=== PATIENT | male | born 1960 | race Two or more races ===

== ENCOUNTER 2017-01-14 09:51 | Day surgery (SDC) | payer MEDICARE ==
[~2017-01-14 09:51] MED LIST: CEFAZOLIN SODIUM 2 GRAM PREMIX 100 ML IV ONE; IV START KIT ONE; LACTATED RINGERS 1,000 ML ONE
[2017-01-14] MEDS ORDERED: LIDOCAINE 1% 2 ML VIAL ID PRN (10:07)
[2017-01-14] MEDS ORDERED: LACTATED RINGERS 1,000 ML IV SCH ×3 (10:07→15:03)
[2017-01-14] MEDS ORDERED: CEFAZOLIN SODIUM 2 GRAM PREMIX 2 G in Premix (D5W) 100 ml 1 EACH IV PRN (10:07)
[2017-01-14] MEDS ORDERED: SODIUM CHLORIDE 0.9% 1,000 ML ONE (10:29)
[2017-01-14] MEDS ORDERED: ONDANSETRON 4 MG/2ML 2 ML VIAL ONE (11:07)
[2017-01-14] MEDS ORDERED: FENTANYL 100 MCG/2 ML VIAL ONE ×2 (11:07→14:37)
[2017-01-14] MEDS ORDERED: SUCCINYLCHOLINE CHL 20 MG/ML DOSE ONE (11:07)
[2017-01-14] MEDS ORDERED: PROPOFOL 20 ML IV ONE (11:07)
[2017-01-14] MEDS ORDERED: DEXAMETHASONE SOD PHOS 4 MG/1 ML VIAL ONE (11:07)
[2017-01-14] MEDS ORDERED: MIDAZOLAM HCL 1 MG/ML 2ML VIAL ONE (11:07)
[2017-01-14] MEDS ORDERED: LIDOCAINE 1% (PRES FREE) 30 ML VIAL ONE (12:07)
[2017-01-14] MEDS ORDERED: PHENYLEPHRINE 10 MG/1 ML (1%) VIAL ONE (12:44)
[2017-01-14] MEDS ORDERED: SODIUM CHLORIDE 0.9% FLUSH 10 ML ONE (12:44)
[2017-01-14] MEDS ORDERED: PROMETHAZINE HCL 25 MG/ML VIAL IM PRN (13:00)
[2017-01-14] MEDS ORDERED: HYDROMORPHONE HCL 1 MG/ML SYRINGE IV PRN ×2 (13:00→15:03)
[2017-01-14] MEDS ORDERED: LABETALOL HCL 5 MG/ML 20ML VIAL IV PRN (13:00)
[2017-01-14] MEDS ORDERED: ATROPINE SULFATE 0.4 MG/1 ML VIAL IV PRN (13:00)
[2017-01-14] MEDS ORDERED: ONDANSETRON 4 MG/2ML 2 ML VIAL IV PRN ×2 (13:00→15:03)
[2017-01-14] MEDS ORDERED: MEPERIDINE 25 MG/ML SYRINGE IV PRN (13:00)
[2017-01-14] MEDS ORDERED: NALOXONE HCL 0.4 MG/ML VIAL IV PRN (13:00)
[2017-01-14] MEDS ORDERED: HYDRALAZINE HCL 20 MG/1 ML VIAL IV PRN (13:00)
--- NOTE | 2017-01-14 14:09 | PCMBPN ---
Brief Post Op Note: Date of Procedure: 01/14/17 Preoperative Diagnosis: 1. Subcutaneous neck/back masses Postoperative Diagnosis: 1. Same Procedure: excision of neck and back subcutaneous masses Surgeon: Feli Conrad MD Assist:Trisha Anand Anesthesia: GETA Findings: see dictation Condition: stable Complications: bleeding 650ml blood loss IV Fluids: see anesthesia report Urine Output: see anesthesia report Estimated Blood Loss: 650 mLs Tourniquet Time: N/A Specimens: posterior neck mass, back mass Implants: n/a Drains: [N/A]
[2017-01-14] MEDS: FENTANYL 100 MCG/2 ML VIAL IV PRN ×2 (14:38→14:52)
[2017-01-14] MEDS ORDERED: OXYCODONE/ACETAMINOPHEN 5/325 MG TABLET PO PRN (15:03)
[2017-01-14] MEDS ORDERED: OXYCODONE/ACETAMINOPHEN 5/325 MG TABLET ONE (15:39)
--- NOTE | 2017-01-14 17:59 | OP ---
DALILA EDWARDS [id number] : 1960 DATE OF SERVICE: January 14, 2017 PREOPERATIVE DIAGNOSIS: Subcutaneous masses in the posterior neck and right back. POSTOPERATIVE DIAGNOSIS: Subcutaneous masses in the posterior neck and right back. PROCEDURE PERFORMED: EXCISION OF POSTERIOR NECK MASS AND BACK MASS. SURGEON: Feli Conrad M.D. FLIGHT DYNAMICIST: Delfina Arvizu ANESTHESIA: General. FINDINGS: A 5 cm in diameter mass in the subcutaneous tissue at the back and about a 3 cm in diameter mass in the posterior neck. There was some bleeding at the posterior neck mass removal. The blood vessel was cut in half pretty much, and this had to be sutured off but there was quite a bit of blood loss during the procedure. TECHNIQUE: The patient was taken back to the operating room , placed under general anesthesia and placed in the left lateral decubitus position with the walls bag. The right posterior neck and right mid back were prepped and draped in sterile surgical fashion. Local anesthetic was placed at the hairline, and a #15 blade scalpel was used to take an ellipse of skin from a prior scar over the mass. Electrocautery was used to cut through the subcutaneous tissue and dissect out the mass from the surrounding tissue. The mass went all the way down to the muscle and it was taken off the muscle. During the removal there was some bleeding that occurred. I could not see the source of the bleeding as I was taking it off. It was in the posterior superior right along the muscle and I could not see it very well, and so I kept dissecting trying to get the mass off so I could get to it as that was the only way I could actually get visualization. So there was some blood loss while I was getting to that point. Once I had it removed, I still had some difficulty getting control of it. I tried using some pickups and tried just cauterizing it but it was not helpful. So I finally took some suture and ran a [id number] around it, and that seemed to control it. After I did this, I realized that actually the vessel had just the side split off of it so it was not too into the vessel it was actually just part of the wall was split off and that is why I had a difficult time controlling it because it was about 0.5 cm in length that was like that. Once I had it tied off with some #3-0 silk, the oozing stopped and everything was okay but he had a significant amount of blood loss during all of this. He had 600 mL. Once all of that was cleaned up and the mass was sent off to pathology, the deep dermis was closed with interrupted #3-0 Vicryl and the skin was closed with #4-0 Monocryl. We turned our attention to the other mass, placed some local anesthetic in the subcutaneous tissue and made a transverse incision over where the mass was palpated in the posterior back. Electrocautery was used to cut through the subcutaneous tissue and continued down to the fascia over the muscle layer. Just underneath that there was a fatty tissue that was not normal, and this was removed with electrocautery and then taken off the muscle. There was a little bit of oozing during this, and there was a blood vessel that was dissected and bleeding, and we took care of that though as we went this time. Then I ultimately got the mass off. It was very thin. It was less than 0.5 cm in depth, but it was about 5 cm in diameter. Once I removed it from the surrounding tissue and from the muscle and had good hemostasis, I sent it to pathology. I irrigated the cavity and then closed the deep fascia with interrupted #3-0 Vicryl, closed the deep dermis with interrupted #3-0 Vicryl and closed the skin incisions with #4-0 Monocryl. SteriStrips were applied, and the patient was awakened and returned to the recovery room in stable condition. All needle, instrument and sponge counts were correct at the end of the case.
--- NOTE | 2017-01-17 12:05 | SURGPATH ---
[facility] [address] [place] [id number] Patient Name: DALILA EDWARDS MR#: [id number] : 1960 Gender: M Specimen #: [id number] Collected: 01/14/2017 Received: 01/16/2017 Reported: 01/17/2017 Submitting Phys: SUMMER RODRÍGUEZ Copy To Phys: [facility] NATE BECKMAN GABRIEL Clinical History / Pre-Operative Diagnosis: Specimen Source / Surgical Procedure Performed: #1 posterior neck mass, #2 mid back mass Interpretation: 1. POSTERIOR NECK MASS, EXCISIONAL BIOPSY: - LIPOMA 2. MID BACK MASS, EXCISIONAL BIOPSY: - LIPOMA Electronically Signed Out Amadou Pimentel M.D. Gross Description: 1. The specimen is received in formalin labeled with the patient's name and "posterior neck mass". The specimen consists of a 5.0 x 5.0 x 2.5 cm lobulated portion of yellow fatty tissue with a 3.0 x 0.7 cm portion of pérez skin. The cut surface is homogeneous and fatty consistent with a lipoma. 1A-C. community relations representative 2. The specimen is received in formalin labeled with the patient's name and "mid back mass". The specimen consists of a 7.5 x 7.0 x 1.5 cm portion of lobulated yellow fatty tissue. The cut surface is homogeneous and fatty consistent with a lipoma. 2A-C. community relations representative KRISTI Dan Microscopic Description: 1. The sections show skin with subcutaneous adipose tissue without atypia. 2. The sections show lobules of mature adipose tissue without atypia. 1: 64668 2: 80141 D17.1
== END 2017-01-14 16:25 | disposition home or self-care (01) ==
LOC: SDC 09:51
PROVIDERS: ATTEND Surgery
DX: D17.0 Benign lipomatous neoplasm of skin and subcutaneous tissue of head, face and neck (principal); D17.1 Benign lipomatous neoplasm of skin and subcutaneous tissue of trunk; E11.9 Type 2 diabetes mellitus without complications; I10 Essential (primary) hypertension; G82.50 Quadriplegia, unspecified; N31.9 Neuromuscular dysfunction of bladder, unspecified; Z87.891 Personal history of nicotine dependence; Z79.4 Long term (current) use of insulin
CPT/HCPCS: 11406; 11423; J3010 ×3; J1100; J2370; A9270; J2250; J2001; J2405; J7120 ×2; J7030; J0690